=== PATIENT | male | born 1995 | race Caucasian/White ===

== ENCOUNTER 2024-03-23 00:17 | Emergency (ER) | payer OTHER ==
[~2024-03-23] VITALS: Ht 162.6 cm; Wt 75.7 kg
[2024-03-23] MEDS ORDERED: ondansetron HCL 4 MG/2 ML VIAL IV ONE (00:30)
[2024-03-23] MEDS ORDERED: LACTATED RINGER'S 1,000 ML IV ONE ×2 (00:30→02:30)
[2024-03-23] MEDS ORDERED: PANTOPRAZOLE SODIUM 40 MG/10 ML VIAL IV ONE (00:30)
[2024-03-23 00:31] LABS: BASOPHILS 0.8 % (0-2); HEMATOCRIT 36.9 % (35.0-50.0); HEMOGLOBIN 12.5 g/dL (12.0-18.0); LYMPHOCYTES 36.4 % (24-44); MCH 29.9 (27-36); MCHC 33.9 g/dl (30-36); MCV 88.1 fl (81-99); MONOCYTES 5.5 % (0-12); NEUTROPHILS 56.3 % (39-80); PLATELET COUNT 310 K/uL (140-440); RBC 4.19 M/ul (4.3-5.7); RDW 12.9 (10.5-15.0)
[2024-03-23] MEDS ORDERED: OMEPRAZOLE20 MG PO ×2 (00:39→00:40)
[2024-03-23] MEDS ORDERED: FAMOTIDINE20 MG PO (00:39)
[2024-03-23 00:41] LABS: PARTIAL THROMBOPLASTIN TIME 24.2 Sec (22.9-41.3)
[2024-03-23 00:42] LABS: INR 1.18 (0.80-1.30); PROTIME 14.3 Sec (11.2-14.2)
[2024-03-23 00:46] LABS: ALBUMIN 3.8 g/dL (3.4-5.0); ALBUMIN/GLOBULIN RATIO 1.27 (1.1-2.4); ANION GAP 16.4 (7-21); BILIRUBIN, TOTAL 0.3 ng/dL (0.2-1.0); BUN/CREATININE RATIO 14.75 (6.0-28.6); CALCIUM 8.1 mg/dL (8.5-10.1); CREATININE, SERUM 1.22 mg/dL (0.70-1.30); POTASSIUM 3.4 mmol/L (3.5-5.1); PROTEIN, TOTAL 6.8 g/dL (6.4-8.2)
[2024-03-23] MEDS ORDERED: LACTATED RINGER'S 1,000 ML IV SCH (01:00)
[2024-03-23 01:12] LABS: ABO O; ANTIBODY SCREEN NEGATIVE; RH POSITIVE
[2024-03-23] MEDS ORDERED: NALOXONE HCL 2 MG/2 ML SYR IV ONE (01:45)
[2024-03-23 01:55] LABS: BILIRUBIN, URINE NEGATIVE (negative); BLOOD/HGB, URINE NEGATIVE (Negative); KETONE, URINE NEGATIVE (Negative); LEUK ESTERASE, URINE NEGATIVE (negative); NITRITE, URINE NEGATIVE (negative)
[2024-03-23] MEDS ORDERED: droPERidol 5 MG/2 ML VIAL IV ONE (02:00)
[2024-03-23 02:10] LABS: AMPHETAMINES, URINE NEGATIVE (NEGATIVE); BARBITURATES, URINE NEGATIVE (NEGATIVE); BENZODIAZEPINE, URINE NEGATIVE (NEGATIVE); BUPRENORPHINE, URINE NEGATIVE (NEGATIVE); CANNABINOID, URINE NEGATIVE (NEGATIVE); COCAINE, URINE NEGATIVE (NEGATIVE); ECSTASY, URINE NEGATIVE (NEGATIVE); FENTANYL, URINE NEGATIVE (NEGATIVE); METHADONE, URINE NEGATIVE (NEGATIVE); OPIATES, URINE NEGATIVE (NEGATIVE); OXYCODONE, URINE NEGATIVE (NEGATIVE); PHENCYCLIDINE, URINE NEGATIVE (NEGATIVE)
[2024-03-23] MEDS ORDERED: CEFTRIAXONE/SODIUM CHLORIDE 2 GM/100 ML PIGGYBACK IV ONE (02:30)
[2024-03-23 02:49] LABS: LACTIC ACID, BLOOD 1.6 mmol/L (0.4-2.0)
[2024-03-23 02:51] LABS: BASOPHILS 0.3 % (0-2); EOSINOPHILS 0.1 % (0-6); HEMATOCRIT 32.6 % (35.0-50.0); HEMOGLOBIN 10.9 g/dL (12.0-18.0); LYMPHOCYTES 8.1 % (24-44); MCH 29.5 (27-36); MCHC 33.3 g/dl (30-36); MCV 88.6 fl (81-99); MONOCYTES 4.8 % (0-12); NEUTROPHILS 86.7 % (39-80); PLATELET COUNT 237 K/uL (140-440); RBC 3.68 M/ul (4.3-5.7); RDW 12.8 (10.5-15.0)
[2024-03-23] MEDS ORDERED: NOREPINEPHRINE BITARTRATE 250 ML IV SCH (03:15)
[2024-03-23 03:16] LABS: PH, VENOUS 7.339 (7.31-7.41)
[2024-03-23] MEDS ORDERED: NALOXONE HCL 2 MG/2 ML SYR IV PRN (03:30)
[2024-03-23 03:56] LABS: AMPHETAMINES, URINE NEGATIVE (NEGATIVE); BARBITURATES, URINE NEGATIVE (NEGATIVE); BENZODIAZEPINE, URINE NEGATIVE (NEGATIVE); BUPRENORPHINE, URINE NEGATIVE (NEGATIVE); CANNABINOID, URINE NEGATIVE (NEGATIVE); COCAINE, URINE NEGATIVE (NEGATIVE); ECSTASY, URINE NEGATIVE (NEGATIVE); FENTANYL, URINE NEGATIVE (NEGATIVE); METHADONE, URINE NEGATIVE (NEGATIVE); OPIATES, URINE NEGATIVE (NEGATIVE); OXYCODONE, URINE NEGATIVE (NEGATIVE); PHENCYCLIDINE, URINE NEGATIVE (NEGATIVE)
[2024-03-23 05:06] LABS: BASOPHILS 0.4 % (0-2); EOSINOPHILS 0.8 % (0-6); HEMATOCRIT 36.1 % (35.0-50.0); HEMOGLOBIN 12.3 g/dL (12.0-18.0); LYMPHOCYTES 8.4 % (24-44); MCH 30.1 (27-36); MCHC 34.1 g/dl (30-36); MCV 88.2 fl (81-99); MONOCYTES 2.4 % (0-12); PLATELET COUNT 254 K/uL (140-440); RBC 4.09 M/ul (4.3-5.7); RDW 12.4 (10.5-15.0)
[2024-03-23 05:35] VITALS: BP 95/54
== END 2024-03-23 05:37 | disposition other institution, planned readmission (95) ==
LOC: ED 00:17
PROVIDERS: Internal Medicine
DX: T50.901A Poisoning by unspecified drugs, medicaments and biological substances, accidental (unintentional), initial encounter (principal); R53.83 Other fatigue; I95.9 Hypotension, unspecified; K92.0 Hematemesis; E86.0 Dehydration; K21.9 Gastro-esophageal reflux disease without esophagitis; Z79.899 Other long term (current) drug therapy
CPT/HCPCS: 36415; 70450; 71045; 74177; 80053; 80307; 81003; 82803; 83605; 83690; 84484; 85025; 85610; 85730; 86850; 86900; 86901; 87040; 96361; 96375; 96376; 99285-25; J0696; J1790; J2310; J2405; J2470; J7121